=== PATIENT | male | born 1970 | race Caucasian/White ===

== ENCOUNTER 2018-10-28 08:22 | Emergency (ER) | payer OTHER ==
[~2018-10-28] VITALS: Ht 170.2 cm; Wt 125.0 kg
[2018-10-28 08:33] VITALS: BP 149/67; PULSE 72; RESP 18; Ht 170.2 cm; Wt 125.0 kg
[2018-10-28] MEDS ORDERED: IBUPROFEN 600 MG TAB PO ONE (09:30)
[2018-10-28] MEDS ORDERED: NAPR-985 PO (09:31)
--- NOTE | 2018-10-28 14:36 | ERD ---
ER Documentation Chief Complaint Chief Complaint LEFT ANKLE PAIN S/P TWISTED A DAY AGO. ABLE TO WALK. HPI This is a 48-year-old male patient who presents emergency room with complaint of left ankle pain after stepping out of car and twisting it x1 day. Patient has been ambulatory. Patient has history of prior fracture to same ankle in 2005. Patient is morbidly obese. ROS All systems reviewed and are negative except as per history of present illness. Medications Home Meds Active Scripts Naproxen* (Naprosyn*) 500 Mg Tablet, 500 MG PO BID PRN for PAIN AND/OR INFLAMMATION, #30 TAB Prov:SUZANNE ALEXIS [employer] 10/28/18 Allergies Allergies: Coded Allergies: No Known Allergy (Unverified , 10/28/18) PMhx/Soc Medical and Surgical Hx: pt denies Medical Hx, pt denies Surgical Hx Hx Alcohol Use: No Hx Substance Use: No Hx Tobacco Use: No FmHx Family History: No diabetes, No coronary disease, No other Physical Exam Vitals Vital Signs Date Temp Pulse Resp B/P (MAP) Pulse Ox O2 O2 Flow FiO2 Time Delivery Rate 10/28/18 98.0 72 18 149/67 93 08:33 (94) Physical Exam Const: No acute distress Head: Atraumatic Eyes: Normal Conjunctiva ENT: Normal External Ears, Nose and Mouth. Neck: Full range of motion. No meningismus. Resp: Clear to auscultation bilaterally Cardio: Regular rate and rhythm, no murmurs Abd: Soft, non tender, non distended. Normal bowel sounds Skin: No petechiae or rashes Back: No midline or flank tenderness Ext: No cyanosis, or edema: LLE: +swelling of lateral ankle, no bruising, tender to anterior fibula, no metacarpal pain, motor/sensation intact Neur: Awake and alert Psych: Normal Mood and Affect Results 24 hrs Current Medications Medications Dose Sig/Jade Start Time Status Last (Trade) Ordered Route PRN Stop Time Admin Dose Reason Admin Ibuprofen 600 mg ONCE ONCE 10/28/18 DC 10/28/18 (Motrin) PO 09:30 09:22 10/28/18 09:31 Procedures/MDM ED COURSE: The patient was stable throughout ED course. DIAGNOSTIC IMAGING: Patient refuses x-rays at this time. PROCEDURES: Application of Tamir and walking boot MEDICATIONS GIVEN: Ibuprofen Patient tolerated medication well with no adverse reactions. Patient reported improvement in pain. MDM: This is a 48-year-old male patient who presents to the emergency room with complaint of left ankle pain after stepping and twisting it one day ago. Patient refusing any radiological exams at this time stating "is not that bad" and requesting some support and pain medications. Patient observed to be a mbulatory, no distress, minimal swelling, no focal exams abnormality to LLE. Very low suspicion for fracture, dislocation, tendon or ligament injury. Patient was fitted with Tamir wrap and walking boot with instructions on rice and use of NSAIDs. Patient was instructed to follow-up with his primary care doctor for reevaluation in 1 to 2 weeks. DISPOSITION: The patient has been discharge home to follow-up with community physician. Departure Diagnosis: Primary Impression: Ankle pain Condition: Stable Patient Instructions: R.I.C.E., Sprain, Ankle, No X-Ray Referrals: [facility] YOU HAVE RECEIVED A MEDICAL SCREENING EXAM AND THE RESULTS INDICATE THAT YOU DO NOT HAVE A CONDITION THAT REQUIRES URGENT TREATMENT IN THE EMERGENCY DEPARTMENT. FURTHER EVALUATION AND TREATMENT OF YOUR CONDITION CAN WAIT UNTIL YOU ARE SEEN IN YOUR DOCTORS OFFICE WITHIN THE NEXT 1-2 DAYS. IT IS YOUR RESPONSIBILITY TO MAKE AN APPOINTMENT FOR [facility]. IF YOU HAVE A PRIMARY DOCTOR --you should call your primary doctor and schedule an appointment IF YOU DO NOT HAVE A PRIMARY DOCTOR YOU CAN CALL OUR PHYSICIAN REFERRAL HOTLINE AT IF YOU CAN NOT AFFORD TO SEE A PHYSICIAN YOU CAN CHOSE FROM THE FOLLOWING [facility] [address] [facility]. [facility] [address] [facility]. [facility] [address] [facility]. [facility] [address] [facility]. [facility] [address] [facility]. [facility]. [address] Additional Instructions: Thank you very much for allowing us to participate in your care. Your health and safety is our top priority at [facility]. Call your primary care doctor TOMORROW for an appointment during the next 2-4 days and bring all the information and medications prescribed. Have prescriptions filled and follow precisely the directions on the label. If the symptoms get worse and your provider is unavailable, return to the Emergency Department immediately. SUZANNE ALEXIS NP Oct 28, 2018 14:36
== END 2018-10-28 09:42 | disposition home or self-care (01) ==
LOC: FTE 08:22
DX: M25.572 Pain in left ankle and joints of left foot (principal); E66.01 Morbid (severe) obesity due to excess calories; Z68.41 Body mass index [BMI] 40.0-44.9, adult
CPT/HCPCS: Z7502; Z7610; 99282

== ENCOUNTER 2018-11-07 12:15 | Emergency (ER) | payer OTHER ==
[~2018-11-07] VITALS: Wt 115.0 kg
[~2018-11-07 12:15] MED LIST: NAPR-985 PO
[2018-11-07 12:17] VITALS: BP 160/70; PULSE 77; RESP 18
[2018-11-07] MEDS ORDERED: IBUP800T48 PO (14:53)
--- NOTE | 2018-11-07 14:54 | ERD ---
ER Documentation Chief Complaint Chief Complaint RIGHT KNEE PAIN HPI 48-year-old male presents ED complaining of right knee pain since yesterday. He reports that he was carrying some heavy gallons of water yesterday where he thought he hurt his knee pop yesterday. He has been having pain since the incident. He reports the pain is 8 out of 10 intensity and sharp in character that comes and goes. He reports the pain is worse when he is walking and improves with rest. He has taken ibuprofen which has helped reduce the pain moderately. He denies any previous injuries to the knee and denies any radiation of the pain. ROS All systems reviewed and are negative except as per history of present illness. Medications Home Meds Active Scripts Ibuprofen* (Motrin*) 800 Mg Tab, 800 MG PO Q6H PRN for PAIN AND OR ELEVATED TEMP, #30 TAB Prov:MILTON LEE PA-C 11/07/18 Naproxen* (Naprosyn*) 500 Mg Tablet, 500 MG PO BID PRN for PAIN AND/OR INFLAMMATION, #30 TAB Prov:SUZANNE ALEXIS NP 10/28/18 Allergies Allergies: Coded Allergies: No Known Allergy (Unverified , 10/28/18) PMhx/Soc Hx Alcohol Use: No Hx Substance Use: No Hx Tobacco Use: No FmHx Family History: No diabetes Physical Exam Vitals Vital Signs Date Temp Pulse Resp B/P (MAP) Pulse Ox O2 O2 Flow FiO2 Time Delivery Rate 11/07/18 98.5 77 18 160/70 99 12:17 (100) Physical Exam Const: No acute distress Head: Atraumatic Eyes: Normal Conjunctiva ENT: Normal External Ears, Nose and Mouth. Neck: Full range of motion.. Resp: Clear to auscultation bilaterally Cardio: Regular rate and rhythm Abd: Soft, non tender, obese abd Skin: No petechiae or rashes Back: No midline or flank tenderness Ext: Right knee: slight edema, tenderness to back of knee cap Neur: Awake and alert Psych: Normal Mood and Affect Procedures/MDM ED COURSE: The patient was stable throughout ED course. I kept the patient informed of laboratory and diagnostic imaging results throughout the ED course. DIAGNOSTIC IMAGING: Read by radiologist. PROCEDURE: Right knee radiographs. CLINICAL INDICATION: Right knee pain. TECHNIQUE: Three views. Frontal, lateral, and oblique. COMPARISON: No prior studies are available for comparison. FINDINGS: There is no fracture or dislocation. The soft tissues are normal. The articular surfaces are intact. There is no lytic or blastic lesion. There is a nonspecific sub-centimeter calcification in the posterior leg soft tissues. IMPRESSION: No acute fracture or subluxation Physician Siddharth Date Time Electronically viewed and signed by Laura Keller Physician on 11/07/2018 14:19 PROCEDURES: none MEDICATIONS GIVEN: none MEDICAL DECISION MAKING: Patient is a 48-year-old male complaining of right knee pain since yesterday. He reports he is carrying heavy loads of water in which she thought he felt his knee pop. He reports the pain is better on resting and worse with walking. Physical exam patient showed slight edema to the right knee. Patient had slight tenderness to the back of the kneecap and nonspecific generalized tenderness to the knee. X-ray imaging was done and was unremarkable. At this time, I think the patient does not have any fractures or dislocations. I do not think the patient is suffering from septic arthritis, DVT, gout, pseudogout, or any other emergent conditions. Vital signs were reviewed. Patient is afebrile. Patient was not hypoxic. Patient was hemodynamically stable. Patient was reassured and told to follow up with primary care for further care and management. PRESCRIPTION: motrin DISCHARGE: At this time, patient is stable for discharge and outpatient management. I have instructed the patient to follow-up with his/her primary care physician in 1-2 days. I have discussed with the patient the possibility of needing to see a specialist for further workup and imaging studies if symptoms persist. I have instructed the patient to promptly return to the ER for any new or worsening symptoms including increased pain, fever, nausea, vomiting, weakness or LOC. The patient and/or family expressed understanding of and agreement with this plan. All questions were answered. Home care instructions were provided. Disclaimer: Inadvertent spelling and grammatical errors are likely due to EHR/dictation software use and do not reflect on the overall quality of patient care. Also, please note that the electronic time recorded on this note does not necessarily reflect the actual time of the patient encounter. Departure Diagnosis: Primary Impression: Knee pain Chronicity: acute Laterality: right Qualified Codes: M25.561 - Pain in right knee Condition: Fair Patient Instructions: Knee Pain, Uncertain Cause Referrals: [facility] YOU HAVE RECEIVED A MEDICAL SCREENING EXAM AND THE RESULTS INDICATE THAT YOU DO NOT HAVE A CONDITION THAT REQUIRES URGENT TREATMENT IN THE EMERGENCY DEPARTMENT. FURTHER EVALUATION AND TREATMENT OF YOUR CONDITION CAN WAIT UNTIL YOU ARE SEEN IN YOUR DOCTORS OFFICE WITHIN THE NEXT 1-2 DAYS. IT IS YOUR RESPONSIBILITY TO MAKE AN APPOINTMENT FOR [facility]. IF YOU HAVE A PRIMARY DOCTOR --you should call your primary doctor and schedule an appointment IF YOU DO NOT HAVE A PRIMARY DOCTOR YOU CAN CALL OUR PHYSICIAN REFERRAL HOTLINE AT IF YOU CAN NOT AFFORD TO SEE A PHYSICIAN YOU CAN CHOSE FROM THE FOLLOWING [facility] [address] [facility] [address] [facility] [address] [facility] [address] [facility] [address] [facility] [address] [facility]. [facility] [address] [facility]. [facility] YOU HAVE RECEIVED A MEDICAL SCREENING EXAM AND THE RESULTS INDICATE THAT YOU DO NOT HAVE A CONDITION THAT REQUIRES URGENT TREATMENT IN THE EMERGENCY DEPARTMENT. FURTHER EVALUATION AND TREATMENT OF YOUR CONDITION CAN WAIT UNTIL YOU ARE SEEN IN YOUR DOCTORS OFFICE WITHIN THE NEXT 1-2 DAYS. IT IS YOUR RESPONSIBILITY TO MAKE AN APPOINTMENT FOR [facility]-UP CARE. IF YOU HAVE A PRIMARY DOCTOR --you should call your primary doctor and schedule and appointment IF YOU DO NOT HAVE A PRIMARY DOCTOR YOU CAN CALL OUR PHYSICIAN REFERRAL HOTLINE AT . IF YOU CAN NOT AFFORD TO SEE A PHYSICIAN YOU CAN CHOSE FROM THE FOLLOWING [facility] INSTITUTIONS[facility] [address] [place] [address] [facility] [address] [place] [address] [facility] [address] [place] [address] [facility] Care 7 a.m.- 11 p.m. Every Day of the Week NO APPOINTMENT OR AUTHORIZATION NEEDED Additional Instructions: Call your primary care doctor TOMORROW for an appointment during the next 2-3 days.See the doctor sooner or return here if your condition worsens before your appointment time. MILTON LEE PA-C Nov 07, 2018 14:54
== END 2018-11-07 15:11 | disposition home or self-care (01) ==
LOC: FTE 12:15
DX: M25.561 Pain in right knee (principal)
CPT/HCPCS: 73562; Z7502